=== PATIENT | female | born 1990 | race African-American/Black ===

== ENCOUNTER 2019-12-18 13:36 | Emergency (ER) | payer OTHER ==
[~2019-12-18] VITALS: Ht 175.3 cm; Wt 72.6 kg
--- NOTE | 2019-12-18 13:37 | NUR ---
came in for headache since december s/p fell off the skate board on 12/02/19, 8/10 pain scale, to ER bed 9, hooked to monitor, warm blanket provided, patient aao x 4, breathing even and unlabored. awaiting MD coffey.
--- NOTE | 2019-12-18 14:35 | NUR ---
patient states "I'm not 100%, I'm on control pills and I haven't had sex".
[2019-12-18] MEDS ORDERED: ACETAMINOPHEN 325 MG TABLET ONE (15:22)
[2019-12-18] MEDS ORDERED: ACETAMINOPHEN 325 MG TABLET PO ONE (15:30)
--- NOTE | 2019-12-18 15:45 | NUR ---
Patient discharged to home in stable condition. Written and verbal after care instructions given. Patient verbalizes understanding of instruction.
[2019-12-18 15:48] VITALS: BP 136/68
== END 2019-12-18 15:49 | disposition home or self-care (01) ==
LOC: ER 13:36
DX: S06.0X0A Concussion without loss of consciousness, initial encounter (principal); V00.131A Fall from skateboard, initial encounter; Y93.51 Activity, roller skating (inline) and skateboarding; Y92.89 Other specified places as the place of occurrence of the external cause; Y99.8 Other external cause status
CPT/HCPCS: 70450-TC

== ENCOUNTER 2020-04-10 14:36 | Emergency (ER) | payer MEDICAID ==
[~2020-04-10] VITALS: Ht 175.3 cm; Wt 71.2 kg
[2020-04-10 15:30] VITALS: BP 116/72
== END 2020-04-10 15:42 | disposition home or self-care (01) ==
LOC: ER 14:41
DX: S09.8XXA Other specified injuries of head, initial encounter (principal); M25.511 Pain in right shoulder; V00.131A Fall from skateboard, initial encounter; Y93.51 Activity, roller skating (inline) and skateboarding; Y92.89 Other specified places as the place of occurrence of the external cause; Y99.8 Other external cause status

== ENCOUNTER 2021-11-14 14:23 | Emergency (ER) | payer MEDICAID ==
[~2021-11-14] VITALS: Ht 175.3 cm; Wt 81.6 kg
[2021-11-14 14:36] VITALS: BP 118/71
[2021-11-14] MEDS ORDERED: ACETAMINOPHEN 325 MG TABLET ONE (15:18)
[2021-11-14] MEDS ORDERED: METOCLOPRAMIDE HCL 10 MG TABLET ONE (15:19)
[2021-11-14] MEDS ORDERED: ACETAMINOPHEN 325 MG TABLET PO ONE (15:30)
[2021-11-14] MEDS ORDERED: METOCLOPRAMIDE HCL 10 MG TABLET PO ONE (15:30)
[2021-11-14] MEDS ORDERED: METO-295 PO (15:58)
[2021-11-14] MEDS ORDERED: IBUP-1957 PO (15:58)
--- NOTE | 2021-11-14 16:08 | NUR ---
Patient discharged to home in stable condition. Written and verbal after care instructions given. Patient verbalizes understanding of instruction.
== END 2021-11-14 16:08 | disposition home or self-care (01) ==
LOC: ER 14:31
DX: R51.9 Headache, unspecified (principal); Z79.899 Other long term (current) drug therapy
CPT/HCPCS: 84703; 99283; J8597

== ENCOUNTER 2025-05-23 09:11 | Emergency (ER) | payer MEDICAID, OTHER ==
[~2025-05-23] VITALS: Ht 175.3 cm; Wt 64.9 kg
[~2025-05-23 09:11] MED LIST: IBUP-1957 PO; METO-295 PO
[2025-05-23] MEDS ORDERED: PROCHLORPERAZINE EDISYLATE 10 MG/2 ML VIAL ONE (09:51)
[2025-05-23] MEDS ORDERED: KETOROLAC TROMETHAMINE 15 MG/ML VIAL ONE (09:51)
[2025-05-23] MEDS ORDERED: dexaMETHasone SOD PHOSPHATE 1 ML ONE (09:51)
[2025-05-23] MEDS: PROCHLORPERAZINE EDISYLATE 10 MG/2 ML VIAL IVP ONE (10:26)
[2025-05-23] MEDS: KETOROLAC TROMETHAMINE 15 MG/ML VIAL IV ONE (10:26)
[2025-05-23] MEDS: dexaMETHasone SOD PHOSPHATE 10 MG/ML VIAL IV ONE (10:26)
[2025-05-23] MEDS ORDERED: DEXA4TAB68 PO (11:35)
[2025-05-23] MEDS ORDERED: PROC-11 PO (11:35)
[2025-05-23] MEDS ORDERED: KETO10TA2 PO (11:35)
[2025-05-23 12:00] VITALS: BP 118/71; TEMP 98.6; O2SAT 100
== END 2025-05-23 12:00 | disposition home or self-care (01) ==
LOC: ER 09:21
DX: R51.9 Headache, unspecified (principal)
CPT/HCPCS: 99285; 96374; 70450; 96375; 84703; J1885; J0780; J1100